=== PATIENT | male | born 1965 | race Two or more races ===

== ENCOUNTER 2018-03-10 10:39 | Observation (INO) | payer BC ==
[~2018-03-10] VITALS: Ht 177.8 cm; Wt 79.4 kg
[2018-03-10] MEDS ORDERED: LIPITOR (11:26)
[2018-03-10] MEDS ORDERED: SODIUM CHLORIDE FLUSH 10ML SYR IVF ONE (11:30)
[2018-03-10] MEDS ORDERED: ASPIRIN 81 MG TABLET CHEW PO ONE (11:30)
[2018-03-10] MEDS ORDERED: NITROGLYCERIN SINGLE TAB 0.4 MG SL PRN (11:30)
[2018-03-10] MEDS ORDERED: ASPIRIN 325 MG TABLET PO ONE (11:30)
[2018-03-10] MEDS ORDERED: NITROGLYCERIN SINGLE TAB 0.4 MG SL ONE (11:33)
[2018-03-10] MEDS ORDERED: ASPIRIN 81 MG TABLET CHEW ONE (11:33)
[2018-03-10 11:39] LABS: INTERNATIONAL NORMALIZED RATIO 1.1 (0.93-1.1); PROTHROMBIN TIME 11.3 Seconds (9.6-11.5)
[2018-03-10 11:41] LABS: BASOPHILS # (AUTO) 0.02 x10^3/uL (0-0.1); BASOPHILS % (AUTO) 0 % (0-1); EOSINOPHILS # (AUTO) 0.08 x10^3/uL (0-0.4); EOSINOPHILS % (AUTO) 1 % (1-7); LYMPHOCYTES # (AUTO) 1.37 x10^3/uL (1-3.4); LYMPHOCYTES % (AUTO) 20 % (22-44); MD NO; MEAN CORPUSCULAR HEMOGLOBIN 30.3 pg (27.5-34.5); MEAN CORPUSCULAR HGB CONC 34.8 g/dL (33.2-36.2); MEAN CORPUSCULAR VOLUME 86.9 fL (81-97); MEAN PLATELET VOLUME 7.5 fL (7.4-10.4); MONOCYTES % (AUTO) 6 % (2-9); NEUTROPHILS # (AUTO) 4.97 x10^3/uL (1.8-6.8); NEUTROPHILS % (AUTO) 73 % (42-75); PLATELET COUNT 222 x10^3/uL (130-400); RED BLOOD COUNT 5.48 x10^6/uL (4.38-5.82); RED CELL DISTRIBUTION WIDTH 12.5 % (9.4-14.8)
[2018-03-10 11:42] LABS: ALANINE AMINOTRANSFERASE 35 U/L (12-78); ANION GAP 8 mmol/L (5-15); CALCIUM 9.1 mg/dL (8.5-10.1); CHLORIDE 109 mmol/L (98-107)
[2018-03-10 11:48] LABS: ALKALINE PHOSPHATASE 87 U/L (45-117); TOTAL PROTEIN 7.5 g/dL (6.4-8.2); TROPONIN I < 0.015 ng/mL (0.000-0.045)
[2018-03-10 11:58] LABS: CREATININE 0.89 mg/dL (0.7-1.3)
[2018-03-10] MEDS ORDERED: ACETAMINOPHEN 325 MG TABLET PO PRN (13:00)
[2018-03-10] MEDS ORDERED: NITROGLYCERIN 0.4 MG BOTTLE (25 TABS) SL PRN (13:00)
[2018-03-10] MEDS ORDERED: hydrALAzine 20 MG/ML, 1ML IVPush PRN (13:00)
[2018-03-10] MEDS ORDERED: ONDANSETRON 2MG/ML, 2ML IVPush PRN (13:00)
[2018-03-10 14:14] VITALS: BP 154/99
[2018-03-10 14:36] VITALS: BP 147/91
[2018-03-10] MEDS: SODIUM CHLORIDE 0.9% 1,000 ML IV SCH (14:42)
[2018-03-10] MEDS ORDERED: NITROGLYCERIN 0.4 MG BOTTLE (25 TABS) SL ONE (14:43)
[2018-03-10] MEDS: ENOXAPARIN 40 MG/0.4 ML SQ SCH (14:52)
[2018-03-10 15:01] VITALS: BP 135/87
[2018-03-10] MEDS ORDERED: ATOR10TA9 PO (15:13)
[2018-03-10] MEDS ORDERED: AMLO5TAB2 PO (15:13)
[2018-03-10 15:34] LABS: HCT (SEDRATE) 47.6 % (39.2-51.8)
[2018-03-10 17:08] LABS: TROPONIN I < 0.015 ng/mL (0.000-0.045)
[2018-03-10 19:27] VITALS: BP 156/97
[2018-03-10 21:00] LABS: TROPONIN I < 0.015 ng/mL (0.000-0.045)
[2018-03-10] MEDS ORDERED: ATORVASTATIN 80 MG TABLET PO SCH (21:00)
[2018-03-11] MEDS: SODIUM CHLORIDE 0.9% 1,000 ML IV SCH (01:13)
[2018-03-11 04:21] VITALS: BP 120/79
[2018-03-11 05:00] LABS: BASOPHILS # (AUTO) 0.02 x10^3/uL (0-0.1); BASOPHILS % (AUTO) 0 % (0-1); EOSINOPHILS # (AUTO) 0.15 x10^3/uL (0-0.4); EOSINOPHILS % (AUTO) 2 % (1-7); LYMPHOCYTES # (AUTO) 1.66 x10^3/uL (1-3.4); LYMPHOCYTES % (AUTO) 26 % (22-44); MD NO; MEAN CORPUSCULAR HEMOGLOBIN 29.9 pg (27.5-34.5); MEAN CORPUSCULAR HGB CONC 34.4 g/dL (33.2-36.2); MEAN PLATELET VOLUME 7.2 fL (7.4-10.4); MONOCYTES # (AUTO) 0.51 x10^3/uL (0.2-0.8); MONOCYTES % (AUTO) 8 % (2-9); NEUTROPHILS # (AUTO) 4.08 x10^3/uL (1.8-6.8); NEUTROPHILS % (AUTO) 64 % (42-75); PLATELET COUNT 190 x10^3/uL (130-400); RED BLOOD COUNT 5.04 x10^6/uL (4.38-5.82); RED CELL DISTRIBUTION WIDTH 12.5 % (9.4-14.8)
[2018-03-11 05:08] LABS: ALBUMIN 3.2 g/dL (3.4-5.0); ANION GAP 7 mmol/L (5-15); CALCIUM 8.4 mg/dL (8.5-10.1); CHLORIDE 109 mmol/L (98-107)
[2018-03-11 05:16] LABS: ALANINE AMINOTRANSFERASE 29 U/L (12-78); ALKALINE PHOSPHATASE 68 U/L (45-117); CHOL/HDL RATIO 4.9; CHOLESTEROL, TOTAL 172 mg/dL (140-239); CREATININE 0.89 mg/dL (0.7-1.3); HDL CHOL % 20 % (26-37); HDL CHOLESTEROL (DIRECT) 35 mg/dL (40-60); LDL CHOLESTEROL,CALCULATED 113 mg/dL (54-169); LDL/HDL RATIO 3.2 (0.5-3.0); TOTAL PROTEIN 6.3 g/dL (6.4-8.2); TRIGLYCERIDES 121 mg/dL (50-200); VLDL CHOLESTEROL 24 mg/dL (0-25)
[2018-03-11] MEDS ORDERED: ASPIRIN 81 MG TABLET EC PO SCH (06:00)
[2018-03-11 07:15] VITALS: BP 151/95
[2018-03-11] MEDS ORDERED: AMLODIPINE 5 MG TABLET PO SCH (09:00)
[2018-03-11 13:56] VITALS: BP 120/85
[2018-03-11] MEDS: ENOXAPARIN 40 MG/0.4 ML SQ SCH (13:57)
[2018-03-11] MEDS ORDERED: ASPI-621 PO (16:11)
[2018-03-11] MEDS ORDERED: NITR0.4T SL (16:11)
== END 2018-03-11 17:04 | disposition home or self-care (01) ==
LOC: ED 12:23 → 5SO 12:24 → INTOOBSV 12:24 → ED 12:34
PROVIDERS: ADMIT Internal Medicine; ATTEND Internal Medicine
DX: R07.89 Other chest pain (principal); I16.0 Hypertensive urgency; I45.10 Unspecified right bundle-branch block; M43.6 Torticollis; E78.5 Hyperlipidemia, unspecified; E78.00 Pure hypercholesterolemia, unspecified; K59.00 Constipation, unspecified; B18.1 Chronic viral hepatitis B without delta-agent; I10 Essential (primary) hypertension; Z79.82 Long term (current) use of aspirin; Z82.49 Family history of ischemic heart disease and other diseases of the circulatory system; Z87.891 Personal history of nicotine dependence
CPT/HCPCS: 36415; 71045; 78452; 80053; 80061; 83690; 83735; 84439; 84443; 84484; 85025; 85379; 85610; 85651; 85730; 93005; 93017; 96360; 96361; 96372; 99285; A9502; C9898; G0378; J1650; J7030